=== PATIENT | male | born 1960 | race African-American/Black ===

== ENCOUNTER 2019-10-24 08:19 | Inpatient (IN) ==
[2019-10-24 09:00] LABS: BASO# 0.01 X1000 (0.0-0.2); BASO% 0.2 % (0.0-0.8); HEMATOCRIT 45.6 % (42.0-52.0); HEMOGLOBIN 15.8 g/dL (14.0-18.0); IMM GRAN# 0.02 X1000 (0.0-0.04); IMM GRAN% 0.3 % (0.0-0.5); LYMPH# 0.99 X1000 (1.2-3.4); LYMPH% 16.9 % (20.5-51.1); MCH 30.2 PG (27-31); MCHC 34.6 g/dL (33-37); MCV 87.2 FL (81-99); MONO# 0.31 X1000 (0.11-0.59); MONO% 5.3 % (1.7-9.3); MPV 10.7 FL (7.4-10.4); NEUT# 4.54 X1000 (1.4-6.5); NEUT% 77.3 % (42.2-75.2); PLT 251 X1000 (130-400); RBC 5.23 XMIL (4.7-6.1); RDW 15.4 % (11.5-14.5); WBC 5.87 X1000 (4.8-10.8)
[2019-10-24] MEDS ORDERED: ZOFRAN IV ONE (09:11)
[2019-10-24] MEDS ORDERED: NS 1,000 ML IV ONE (09:11)
[2019-10-24 09:24] LABS: ALBUMIN 5.3 g/dL (3.5-5.0); CALCIUM 9.9 mg/dL (8.8-10.2); CREATININE 1.7 mg/dL (0.7-1.2); POTASSIUM 3.7 mmol/L (3.5-5.1); TOTAL BILIRUBIN 1.1 mg/dL (0.20-1.00)
[2019-10-24 09:44] LABS: INR 0.92; PROTIME 12.8 Seconds (11.0-16.0)
[2019-10-24 09:45] LABS: PTT 31.5 Seconds (22.3-41.8)
[2019-10-24] MEDS ORDERED: PITRESSIN 40 UNIT in NS 100 ML IV SCH (09:45)
[2019-10-24] MEDS ORDERED: LEVOPHED 8 MG in D5 1/2 NS 250 ML IV SCH (09:45)
[2019-10-24] MEDS ORDERED: EPINEPHRINE 4 MG in NS 250 ML IV SCH (09:45)
[2019-10-24 10:16] LABS: CK INDEX 1.3 (0.0-2.5); CK-MB 3.73 ng/mL (0.0-5.0)
--- NOTE | 2019-10-24 10:55 | Diag Imaging Result Doc PS360 ---
EXAM: CT ABDOMEN/PELVIS W/O CONTRAST INDICATION: Abdominal pain, n/v/d, elevated LFTs TECHNIQUE: This exam was performed using automated exposure control, adjustment of mA or kV according to patient size, and/or use of iterative reconstruction technique. COMPARISON: None. FINDINGS: There are multiple calcified stones layering in the gallbladder lumen. No definite pericholecystic inflammatory changes appreciated. There is probably very minimal hepatic steatosis. The liver is grossly unremarkable as imaged with unenhanced CT, otherwise. The spleen is unremarkable. There are a few calcifications at the uncinate process of the pancreas as well as the tail. These are nonspecific. It could indicate chronic pancreatitis. The adrenal glands, kidneys, and urinary bladder are unremarkable as imaged. There is no evidence of bowel obstruction. No definite bowel wall thickening is appreciated. The remainder of the GI tract is grossly unremarkable as imaged with unenhanced CT. No focal inflammatory changes, free abdominal gas, or free fluid is appreciated. There is aortoiliac atherosclerotic calcification. There are degenerative changes involving the hips and spine. There is no evidence of acute osseous abnormality. IMPRESSION: 1.Cholelithiasis. 2.Probably very minimal hepatic steatosis. 3.A few coarse pancreatic calcifications that are nonspecific but could indicate chronic pancreatitis. 4.Other incidental/nonacute findings detailed above. Electronically signed by Guy Jeffery 10/24/2019 10:53 AM
--- NOTE | 2019-10-24 10:56 | Diag Imaging Result Doc PS360 ---
EXAM: CHEST-1 VIEW INDICATION: sepsis TECHNIQUE: One view COMPARISON: 07/16/2017 FINDINGS: The lungs are grossly clear. There is no discrete pleural fluid collection or pneumothorax. The cardiomediastinal silhouette and central vasculature are grossly unremarkable. IMPRESSION: No evidence of acute pathology by plain radiograph. Electronically signed by Guy Jeffery 10/24/2019 10:54 AM
--- NOTE | 2019-10-24 11:10 | PROVIDER DOCUMENTATION ---
This chart was entered by Petey Vicente Scribe, acting as scribe for Lola Booker CRNP. HPI-Abdominal Pain/GI Problem - General Chief Complaint: N/V/D Stated Complaint: N/V/D Time Seen by Provider: 10/24/19 09:00 Source: patient Allergies/Adverse Reactions: Patient Allergies Allergy/AdvReac Type Severity Reaction Status Date / Time No Known Allergies Allergy Verified 10/24/19 08:54 Home Medications: Home Medication List Medication Instructions Recorded Confirmed Last Taken Type NK [No Home Medications] 10/24/19 10/24/19 Unknown History - History of Present Illness-ABD Nature of Presenting Problems: Patient is a 59yo M who presents with complaints of n/v/d, abominal pain, and chills x2 days. Reports drinking alcohol the night of symptom onset, as well as daily alcohol usage of up to a fifth per day. Reports hx of pancreatitis. Denies fever, problems, flu-like symptoms, CP, or SOB. Non-toxic in appearance. Abdominal Pain Onset Location: reports: generalized abdomen Pain Radiation: reports: no radiation Quality of Pain: reports: aching, dull Severity in ED: reports: mild Onset/Duration: reports: 2 days ago Timing: reports: still present Activities at Onset: reports: none Exposure to sick contacts?: No Modifying Factors: improves with: nothing Associated Symptoms: reports: diarrhea, fever/chills, nausea, vomiting. denies: back/neck pain, cough, EENT symptoms, headaches, loss of appetite, shortness of breath, trouble walking Last BM: this morning Dark Stools Present?: reports: none noticed Rectal Bleeding: reports: none Rectal Pain: reports: none Emesis Description: reports: clear, other Bruising or Bleeding Gums?: No Similar Symptoms Previously?: Yes Recently seen or treated by another doctor?: No Review of Systems - Adult - REVIEW OF SYSTEMS - ADULT Constitutional: reports: see HPI, chills Eyes: reports: no symptoms reported Ears, Nose, Mouth & Throat: denies: ear pain, sinus problem, throat pain Cardiovascular: denies: chest pain, edema, palpitations Respiratory: denies: cough, shortness of breath, wheezing Gastrointestinal: reports: see HPI, abdominal pain, diarrhea, nausea, vomiting. denies: rectal bleeding Genitourinary: denies: dysuria, discharge, hematuria Musculoskeletal: denies: back pain, joint pain, neck pain Integumentary: denies: hives, rash Neurological: denies: dizziness/vertigo, headache/migraines Psychiatric: reports: no symptoms reported Endocrine: reports: no symptoms reported Past History - Adult - PAST MEDICAL HISTORY-ADULT Review of Records: reports: Nursing Assessment Review, Medications Reviewed Respiratory: reports: pneumonia Gastrointestinal: reports: pancreatitis - PRIOR SURGERIES/PROCEDURES Surgical/Procedure History: reports: none - IMMUNIZATION STATUS Childhood Immunizations: See Nurse Assessment Flu Vaccine: See Nurse Assessment - FAMILY HISTORY Family History: reviewed, not pertinent - SOCIAL HISTORY Smoking: less than 1 pack/day Substance Use: alcohol Alcohol Use Frequency: every day Number of drinks per typical drinking period:: 5-10 drinks Living Situation: alone Physical Exam-General - PHYSICAL EXAM-ADULT Initial Vital Signs Reviewed: Yes - CONSTITUTIONAL General Appearance: appears well, alert, no apparent distress - EYES Eyes: PERRL/EOMI, pink conjunctivae - HEAD, EARS, NOSE, MOUTH & THROAT HENMT: pharynx normal. negative: moist mucous membranes (dry), angioedema - NECK Neck: non-tender, full range of motion, supple, normal inspection - RESPIRATORY Respiratory: lungs clear, normal breath sounds, no pleuratic chest pain, no respiratory distress, no accessory muscle use - CARDIOVASCULAR Cardiovascular: regular rate, rhythm, tachycardia - GASTROINTESTINAL (ABDOMEN) Abdominal Exam: normal bowel sounds, soft, tenderness (diffuse tenderness to palpation) - MUSCULOSKELETAL Back Exam: normal inspection, no CVA tenderness, no vertebral tenderness Extremity: normal range of motion, non-tender, normal gait, normal inspection, no pedal edema - SKIN Integumentary: normal color, normal turgor, warm/dry - NEUROLOGIC Neurologic: grossly normal, no motor/sensory deficits - PSYCHIATRIC Psych/Mental Status: normal mood/affect, normal thought content, normal thought process, oriented x 3 Progress - PLAN OF CARE/RESULTS Progress/Plan/Lab Results: Vital Signs - 8 hr 10/24/19 08:26 Temperature 98.0 F Pulse Rate 122 H Respiratory Rate 16 Blood Pressure 156/103 O2 Sat by Pulse Oximetry 98 Laboratory Results - last 24 hr 10/24/19 08:50 WBC 5.87 RBC 5.23 Hgb 15.8 Hct 45.6 MCV 87.2 MCH 30.2 MCHC 34.6 RDW Std Deviation 15.4 H Plt Count 251 MPV 10.7 H Immature Gran % (Auto) 0.3 Neut % (Auto) 77.3 H Lymph % (Auto) 16.9 L [place] % (Auto) 5.3 Eos % (Auto) 0.0 Baso % (Auto) 0.2 Immature Gran # (Auto) 0.02 Neut # (Auto) 4.54 Lymph # (Auto) 0.99 L [place] # (Auto) 0.31 Eos # (Auto) 0.00 Baso # (Auto) 0.01 Orders Category Date Time Status ED: Orthostatic Vital Signs (E DIRECTED Care 10/24/19 09:01 Active NEWS Score 2-4:Order NEWS Lactate Series NOW Care 10/24/19 08:29 Active Saline Loc NOW Care 10/24/19 08:30 Active NPO Diet 10/24/19 08:31 Active CBC WITH DIFF [HEME] Stat Lab 10/24/19 08:50 Completed COMPREHENSIVE METABOLIC PANEL [CHEM] Stat Lab 10/24/19 08:50 Received LACTATE, PLASMA [CHEM] Lab 10/24/19 08:50 Received LACTATE, PLASMA [CHEM] Lab 10/24/19 11:30 Uncollected LACTATE, PLASMA [CHEM] Lab 10/24/19 14:30 Uncollected LIPASE [CHEM] Stat Lab 10/24/19 08:50 Received Abd Pain/OB <20 weeks Stat Oth 10/24/19 08:30 Ordered Lab results, imaging results, plan of care, and need for admission discussed with patient who agrees with and verbalizes understanding. Plan of care discussed and formulated in conjunction with Dr. Abbasi who also examined the patient. Transaminitis likely secondary to alcoholism. Result Diagrams: 10/24/19 08:50 10/24/19 08:50 - EKG 1 Time of EKG reading by physician:: 13:37 EKG Read and Signed by:: Tang Abbasi EKG Interpretation (*Must complete 3 of following elements*): Abnormal Rate: 101 Rhythm: ST [place]: normal QRS: normal [place] Interval: normal ST Wave: non-specific ST changes Comments: Biatrial enlargement - XRAY 1 XRAY: Right XRAY Study: Chest Impression: See EMR Report ([facility] - [address], [address], [place] [address] [address] Department of Imaging Patient: OPAL VILLALOBOSADM Date: 10/24/19MR#: [id number] : 1960DM Status: REG ERAcct#: [id number] Age/Sex: 59/MRoom/Bed: Loc: P.ED Ordering Physician: Lola Booker Family Physician: None,PCP Reason for Procedure: sepsis Signed EXAM: CHEST-1 VIEW INDICATION: sepsis TECHNIQUE: One view COMPARISON: 07/16/2017 FINDINGS: The lungs are grossly clear. There is no discrete pleural fluid collection or pneumothorax. The cardiomediastinal silhouette and central vasculature are grossly unremarkable. IMPRESSION: No evidence of acute pathology by plain radiograph. Electronically signed by Guy Jeffery 10/24/2019 10:54 AM 10/24/19 1054 Interpreting Physician: Guy Jeffery MD Dictated Date/Time: 10/24/19 1054 cc: Lola Booker; None,PCP) - CT/MRI 1 CT Study: Abdomen, Pelvis Impression: See EMR Report ([facility] - [address] , [address], [place] [address] [facility] - [facility] [place] [address] Department of Imaging Patient: OPAL VILLALOBOSADM Date: 10/24/19MR#: [id number] : 1960DM Status: REG ERAcct#: [id number] Age/Sex: 59/MRoom/Bed: Loc: P.ED Ordering Physician: Lola Booker Family Physician: None,PCP Reason for Procedure: Abdominal pain, n/v/d, elevated LFTs Signed EXAM: CT ABDOMEN/PELVIS W/O CONTRAST INDICATION: Abdominal pain, n/v/d, elevated LFTs TECHNIQUE: This exam was performed using automated exposure control, adjustment of mA or kV according to patient size, and/or use of iterative reconstruction technique. COMPARISON: None. FINDINGS: There are multiple calcified stones layering in the gallbladder lumen. No definite pericholecystic inflammatory changes appreciated. There is probably very minimal hepatic steatosis. The liver is grossly unremarkable as imaged with unenhanced CT, otherwise. The spleen is unremarkable. There are a few calcifications at the uncinate process of the pancreas as well as the tail. T hese are nonspecific. It could indicate chronic pancreatitis. The adrenal glands, kidneys, and urinary bladder are unremarkable as imaged. There is no evidence of bowel obstruction. No definite bowel wall thickening is appreciated. The remainder of the GI tract is grossly unremarkable as imaged with unenhanced CT. No focal inflammatory changes, free abdominal gas, or free fluid is appreciated. There is aortoiliac atherosclerotic calcification. There are degenerative changes involving the hips and spine. There is no evidence of acute osseous abnormality. IMPRESSION: 1.Cholelithiasis. 2.Probably very minimal hepatic steatosis. 3.A few coarse pancreatic calcifications that are nonspecific but could indicate chronic pancreatitis. 4.Other incidental/nonacute findings detailed above. Electronically signed by Guy Jeffery 10/24/2019 10:53 AM 10/24/19 1053 Interpreting Physician: Guy Jeffery MD Dictated Date/Time: 10/24/19 1048 cc: Lola Booker; None,PCP) - CONSULTS/PCP/HOSPITALIST Notification #1 *Consult/PCP/Hospitalist*: Dr. Covarrubias Hospitalist Time Discussed: 11:40 Reason/Comments: Acute LFT elevation; n/v/d; chronic pancreatitis Consult Disposition: Will see in ED, Admit Departure - Departure Date of Disposition Decision: 10/24/19 Time of Disposition Decision: 11:44 DIAGNOSIS: Elevated liver enzymes, Nausea vomiting and diarrhea, Acute renal insufficiency, Alcohol abuse Abdominal pain Qualifiers: Abdominal location: generalized Qualified Code(s): R10.84 - Generalized abdominal pain Chronic pancreatitis Qualifiers: Pancreatitis type: alcohol induced Qualified Code(s): K86.0 - Alcohol-induced chronic pancreatitis Disposition: ADMITTED INPATIENT 09 Certified Medical Emergency: Emergent Condition: Stable - Critical Care Note This patient required my direct & personal management of CC.: No Attestation - Physician/ YVETTE Attestation Patient care was provided by Advanced Practice Provider:: Yes Advanced Practice Provider:: Lola Booker Advanced Practice Provider documentation review:: The Mid-level provider documentation, treatment plan and medical decision making was reviewed by the physician who agrees with all treatment and medical decision making by the MLP. The physician spent face to face time with patient:: Yes ([place]) Advanced Practice Provider documentation review:: Supervising physician onsite and consulted in the evaluation and care of this patient. The physician did have a face to face encounter with the patient. This chart was documented by the indicated scribe, (Petey Vicente Scribe) and accurately reflects the services I performed and decisions made by me, Lola Booker CRNP, as attested by the provider's signature.
[2019-10-24] MEDS: LEVAQUIN 750 MG/D5W 750 MG/150 ML IVPB IV SCH (11:30)
[2019-10-24 11:48] LABS: URINE SOURCE CLEAN CATCH
[2019-10-24 11:54] LABS: BILIRUBIN URINE SMALL (NEGATIVE); BLOOD URINE SMALL (NEGATIVE); COLOR YELLOW; GLUCOSE URINE NEGATIVE (NEGATIVE); KETONE URINE 20 mg/dL (NEGATIVE); LEUKOCYTES URINE NEGATIVE (NEGATIVE); NITRITE URINE NEGATIVE (NEGATIVE); PROTEIN URINE 300 mg/dL (NEGATIVE); SP GRAVITY URINE 1.026; TURBIDITY URINE HAZY (CLEAR); UROBILINOGEN URINE 3 mg/dL (NORMAL)
[2019-10-24 11:57] LABS: UR EPITHELIAL CELLS <10 /HPF (<10); URINE RBC <10 /HPF (<10)
[2019-10-24 12:01] LABS: URINE BACTERIA 2+ /HPF; URINE CASTS NONE SEEN; URINE CRYSTALS NONE SEEN; URINE SMALL ROUND CELLS NONE SEEN; URINE YEAST NONE SEEN
[2019-10-24 12:02] LABS: UR AMPHETAMINES QUAL NONE DETECTED (NONE DETECT); UR BARBITUATES QUAL NONE DETECTED (NONE DETECT); UR BENZODIAZEPIN QUAL NONE DETECTED (NONE DETECT); UR CANNABINOIDS QUAL PRESUMPTIVE POSITIVE (NONE DETECT); UR COCAINE QUAL PRESUMPTIVE POSITIVE (NONE DETECT); UR METHADONE QUAL NONE DETECTED (NONE DETECT); UR METHAMPHETAMINE QUAL NONE DETECTED (NONE DETECT); UR OPIATES QUAL NONE DETECTED (NONE DETECT); UR OXYCODONE QUAL NONE DETECTED (NONE DETECT); UR PCP QUAL NONE DETECTED (NONE DETECT); UR PROPOXYPHENE QUAL NONE DETECTED (NONE DETECT); UR TCA QUAL NONE DETECTED (NONE DETECT)
[2019-10-24 12:15] LABS: HEMOGLOBIN A1C 5.8 % (4.8-6.0)
[2019-10-24 12:32] LABS: FREE T4 1.39 ng/dL (0.93-1.70)
[2019-10-24] MEDS ORDERED: SODIUM CHLORIDE 0.9% INJ PRN (12:49)
[2019-10-24] MEDS ORDERED: PHENERGAN IV PRN (12:49)
[2019-10-24] MEDS ORDERED: BENTYL PO PRN (12:50)
[2019-10-24] MEDS ORDERED: ROBAXIN PO PRN (12:50)
[2019-10-24] MEDS ORDERED: ATIVAN IV PRN (12:51)
--- NOTE | 2019-10-24 12:53 | HISTORY AND PHYSICAL ---
ADDENDUM: Patient seen and examined by myself. Full note dictated and discussed with nurse practitioner. Patient presented to the hospital with nausea, vomiting, abdominal pain, for the past couple of days. States that he has been drinking heavily over the past week, typically up to a fifth a day, sometimes more. Does have a history of pancreatitis. I am going to admit him to the hospital. He has acute hepatitis, which most likely is due to his alcoholism. Blood pressures are elevated. We will treat those. Creatinine is elevated at 1.7. We will place him on IV fluids, Zofran and will follow. cc: Chato Covarrubias MD
[2019-10-24] MEDS ORDERED: SODIUM CHLORIDE 0.9% INJ SCH (13:00)
[2019-10-24] MEDS ORDERED: APRESOLINE IV PRN (13:04)
[2019-10-24] MEDS: PROTONIX IV SCH (13:30)
[2019-10-24] MEDS: NS 1,000 ML IV SCH ×2 (13:35→23:57)
--- NOTE | 2019-10-24 13:53 | HISTORY AND PHYSICAL ---
PRIMARY CARE PROVIDER: No one. CHIEF COMPLAINT: Nausea, vomiting, abdominal pain. HISTORY OF PRESENT ILLNESS: Mr. Chema Mcfadden is a 59-year-old male with a medical history of chronic pancreatitis and alcoholism who is here with complaints of nausea and vomiting that started on Friday night today is Friday so for 3 days now he has had nausea, vomiting today is to the point he is just dry heaving. He did have some dark stools that were very foul in smell but that has since resolved. His last alcohol intake was Friday night as well. He prefers Matthias Beam. He drinks up to about a 5th a day with his brother. Smokes marijuana on a daily basis. With these complaints he had a full workup including laboratory data which revealed pancreatitis and acute liver injury or acute alcoholic hepatitis. He was also positive for cocaine and marijuana in his urine. His alcohol level was 0. He had abdominal pelvic CT that was performed showed a nonobstructive cholelithiasis, some mild hepatic steatosis, some pancreatic calcifications due to his history of chronic pancreatitis but nothing else acute so he will be admitted, given antiemetics, IV fluid hydration. PAST MEDICAL HISTORY: 1. Pneumonia. 2. Chronic pancreatitis. 3. Hypertension. SURGICAL HISTORY: None. SOCIAL HISTORY: One pack per day smoker since the age of 18, smokes 2 joints of marijuana per day, drinks a pint to a fifth of a pint of to a fifth of Matthias Beam on a daily basis with last intake being on Friday. He denies any other illicit drug use however he is positive for cocaine in his urine. He currently is single, he has no children. 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 FAMILY HISTORY: Mother had end-stage renal disease. Father had an unknown cancer. ALLERGIES: No known drug allergies. HOME MEDICATIONS: None. REVIEW OF SYSTEMS: Fourteen point review of systems are complete and all were negative except for those mentioned above HPI. PHYSICAL EXAM: VITAL SIGNS: Temperature 98 degrees, heart rate 122, respiratory rate 16, blood pressure 156/103, O2 saturation 98% on room air. They did orthostatic vital signs supine heart rate 120, sitting heart rate 126, standing heart rate 134, supine blood pressure 153/94, sitting blood pressure 140/89, standing blood pressure 143/105. GENERAL: Mr. Chema Mcfadden is a 59-year-old male he is in no acute distress. He did however stop once to dry heave into the bag but otherwise he is able answer all questions appropriately. HEENT: Atraumatic, normocephalic. Pupils equal, round, reactive to light. Extraocular movements intact. Mucous membranes are dry. NECK: Trachea midline. CARDIOVASCULAR: S1, S2. Tachycardic rate and rhythm. No rubs, gallops, murmurs. No lower extremity edema, +2 dorsalis and radial pulses, negative JVD or carotid bruits. PULMONARY: Clear to auscultation bilateral breath sounds. No accessory muscle use or work of breathing noted. GI: Soft, tender in all 4 quadrants, positive bowel sounds x4. EXTREMITIES: Moves all extremities equally, full range of motion. NEUROLOGIC: A and O x3, follows commands. Sensory is intact. SKIN: Warm, dry, intact except for he has a raised rash across his chest from shoulder to shoulder and all over his back. This rash is nowhere else on his body. It does not itch but he states he picks at. LABORATORY DATA: White blood cells 5000, hemoglobin 15, hematocrit 45, platelet count 251,000. INR 0.92, PTT is 31.5. Sodium 137, potassium 3.7, BUN 24, creatinine is 1.7, glucose 238, hemoglobin A1c is 5.8, calcium 9.9, bilirubin is 1.10, AST 1176, ALT is 267, alkaline phos is 374, CK 292, troponin 18, albumin 5.3, triglycerides 157, total cholesterol 168, LDL is 128, HDL is 225, amylase 348, lipase 143, lactate trend 3.4 then down to 1.5, TSH 1, free T4 is 1.39. Urinalysis 300 protein, 20 ketones, small blood, small bilirubin, 3 urobilinogen, 10 to 20 white blood cells, 2+ bacteria. Urine drug screen positive for cocaine and cannabinoids. Acetaminophen less than 1., alcohol 0. IMAGING: Abdominal pelvic CT cholelithiasis, minimal hepatic steatosis, a few coarse pancreatic calcifications showing signs of chronic pancreatitis. Chest x-ray no acute findings. ASSESSMENT AND PLAN: 1. Acute alcoholic hepatitis. Will go ahead and do hepatitis profile. His acetaminophen levels normal, his alcohol level 0, T bilirubin is 1.10 but his AST and ALT are significantly elevated. He has been started IV fluid hydration. His discriminant function level is 9.4 so currently not requiring steroid dosing and we will treat his symptoms his nausea. 2. Alcohol abuse with risk of withdrawals, he has had a history of withdrawals consistent with shaking and seizures in the past. We will put him on banana bag and also Librium taper with p.r.n. Ativan, Friday was last alcoholic beverage so tomorrow will be his highest risk for withdrawals. 3. Tobacco abuse cessation discussed. 4. Hypertension, will add p.r.n. hydralazine. 5. Chronic pancreatitis possibly with mild acute pancreatitis on top of it. Again he is getting intravenous fluid hydration. 6. Illicit drug abuse consistent with marijuana that he admits to and cocaine that he does not admit to, he smokes marijuana on a daily basis so it is possible that it could have been laced with cocaine without him knowing but cessation was discussed. 7. Lactic acidosis with some mild acute kidney injury, this is likely secondary to dehydration. He is getting intravenous fluid hydration, will recheck his kidney function in the morning and his lactate has already dropped down to normal. 8. Hyperglycemia with stable hemoglobin A1c at 5.8. Will just recheck his glucose level in the morning. 9. Hyperlipidemia likely due to liver inflammation at this time. 10. Deep venous prophylaxis sequential compression devices. 11. Rash across the chest and all over his back really unclear as to what this is from, it is nowhere else on the body. Dictated by DARNELL Shankar for Chato Covarrubias MD cc: DARNELL Shankar MD
[2019-10-24] MEDS ORDERED: M.V.I.-12 10 ML, FOLIC ACID 1 MG, MAGNESIUM SULFATE 1 GM, THIAMINE 100 MG in NS 1,000 ML IV SCH (14:00)
[2019-10-24] MEDS: LIBRIUM PO SCH ×2 (15:00→21:22)
--- NOTE | 2019-10-24 15:21 | EKG Report ---
Test Performed on : 10/24/2019 1:36:57 PM Test Reason : rythm eval Blood Pressure : / mmHG Vent. Rate : 101 BPM Atrial Rate : 101 BPM P-R Int : 138 ms QRS Dur : 084 ms QT Int : 348 ms P-R-T Axes : 081 064 096 degrees QTc Int : 451 ms Sinus tachycardia. Biatrial enlargement T wave abnormality, consider lateral ischemia Abnormal ECG When compared with ECG of 16-JUL-2017 09:33, Nonspecific T wave abnormality now evident in Inferior leads T wave inversion now evident in Anterolateral leads Unconfirmed Result
[2019-10-25] MEDS: LIBRIUM PO SCH ×2 (03:00→09:01)
[2019-10-25 06:08] LABS: BASO# 0.01 X1000 (0.0-0.2); BASO% 0.2 % (0.0-0.8); EOS# 0.04 X1000 (0.0-0.7); EOS% 0.6 % (0.0-10.0); HEMATOCRIT 37.5 % (42.0-52.0); HEMOGLOBIN 12.4 g/dL (14.0-18.0); IMM GRAN# 0.01 X1000 (0.0-0.04); IMM GRAN% 0.2 % (0.0-0.5); LYMPH# 1.87 X1000 (1.2-3.4); LYMPH% 29.4 % (20.5-51.1); MCH 30.1 PG (27-31); MCHC 33.1 g/dL (33-37); MONO% 7.8 % (1.7-9.3); MPV 10.9 FL (7.4-10.4); NEUT# 3.94 X1000 (1.4-6.5); NEUT% 61.8 % (42.2-75.2); PLT 164 X1000 (130-400); RBC 4.12 XMIL (4.7-6.1); RDW 15.6 % (11.5-14.5); WBC 6.37 X1000 (4.8-10.8)
[2019-10-25 06:12] LABS: AGAP 17; ALBUMIN 3.5 g/dL (3.5-5.0); ALKALINE PHOSPHATASE 192 U/L (32-122); BUN 23 mg/dL (8-22); CALCIUM 8.4 mg/dL (8.8-10.2); CHLORIDE 98 mmol/L (98-107); COSMO 280; CREATININE 1.2 mg/dL (0.7-1.2); ESTIMATED GFR > 60; GLUCOSE 74 mg/dL (70-104); GOT 299 U/L (10-34); GPT 104 U/L (10-44); MAGNESIUM 1.7 mg/dL (1.5-2.7); POTASSIUM 3.2 mmol/L (3.5-5.1); SODIUM 139 mmol/L (136-145); TCO2 24 mmol/L (25-35); TOTAL PROTEIN 6.4 g/dL (6.3-8.3)
[2019-10-25] MEDS: NS 1,000 ML IV SCH ×2 (09:01→13:49)
[2019-10-25] MEDS: LEVAQUIN 750 MG/D5W 750 MG/150 ML IVPB IV SCH (09:01)
[2019-10-25 12:11] VITALS: BP 152/98
[2019-10-25] MEDS: PROTONIX IV SCH (14:10)
--- NOTE | 2019-10-25 15:41 | DISCHARGE SUMMARY ---
ADMISSION DATE: 10/24/2019 DISCHARGE DATE: 10/25/2019 PRIMARY CARE PROVIDER: None. PERTINENT PROCEDURES: Abdomen/pelvis CT, cholelithiasis probably very minimal, hepatic steatosis. A few coarse pancreatic calcifications that are nonspecific but could indicate chronic pancreatitis. DISCHARGE DIAGNOSES: 1. Acute alcoholic hepatitis, improved. 2. Alcohol abuse. The patient has been on Librium taper and p.r.n. Ativan. 3. Tobacco abuse. Cessation discussed. 4. Hypertension, not on any home medications. 5. Chronic pancreatitis. He has received IV hydration. 6. Illicit drug abuse consistent with marijuana and cocaine. Patient has been educated on abstinence. 7. Lactic acidosis with mild acute kidney injury secondary to dehydration. Patient has been aggressively hydrated. 8. Hyperglycemia with stable hemoglobin A1c of 5.8. 9. Hyperlipidemia likely due to liver inflammation. HOSPITAL COURSE: Briefly, Mr. Chema Mcfadden is a 59-year-old, gentleman with a past medical history of chronic pancreatitis and alcoholism, who came to the ED complaining of nausea and vomiting that started Friday night through Friday. His last alcohol intake was Friday night as well with Matthias Faith. He drinks up to a 5th a day with his brother. Smokes marijuana on a daily basis. Toxicology screen was also positive for cocaine. He states he does not do cocaine. However, he believed his marijuana could have been laced with cocaine. Workup revealed chronic pancreatitis with acute alcoholic hepatitis. Abdomen and pelvis CT confirmed. Chronic pancreatitis, but nothing acute. He was admitted aggressively hydrated, given antiemetics. He is currently tolerating his diet and actually ordered a 2nd tray and will be discharged back home today. He has been educated about alcohol and illicit drug use abstinence. VITAL SIGNS: Temperature is 98.6 degrees, heart rate 85, respirations 18, blood pressure 152/98 O2 is 99% on room air. DISCHARGE DIET: Full liquids. He is to slowly advance as tolerated. DISCHARGE MEDICATIONS: None. FOLLOWUP: Mr. Mcfadden is being discharged back home with self care. He has been advised to abstain from alcohol as well as illicit drug use. Educated on smoking cessation as well as the means to quit. He can return to the ED or call 911 for any worsening of symptoms. Dictated by DARNELL Mendoza for Chato Covarrubias MD cc: Chato Covarrubias MD
--- NOTE | 2019-10-26 04:28 | DISCHARGE SUMMARY ---
ADMISSION DATE: 10/24/2019 DISCHARGE DATE: 10/25/2019 ADDENDUM: Patient seen and examined by myself. Full note dictated and discussed with nurse practitioner. Patient currently is awake and alert. He is in no current distress. Tolerated a full diet. Discussed with him the importance of stopping drinking as well as marijuana usage. Labs are improving. AST and ALT as well as alkaline phosphatase all are improving likely secondary to acute alcoholic hepatitis. Patient is aware and states he will continue to attempt to avoid alcohol. cc: Chato Covarrubias MD
[2019-10-26 12:57] LABS: HEPATITIS PROFILE ACUTE SEE COMMENTS
== END 2019-10-25 15:35 | disposition home or self-care (01) | DRG 432 ==
LOC: P.ED 08:19 → P.MEDSURG 13:33
PROVIDERS: ATTEND Family Medicine